=== PATIENT | female | born 1980 | race Caucasian/White ===

== ENCOUNTER 2020-08-16 13:58 | Inpatient (IN) | payer OTHER ==
[~2020-08-16] VITALS: Ht 144.8 cm; Wt 106.1 kg
--- NOTE | ~2020-08-16 | P ---
[facility] [place] [address] PROCEDURE REPORT Name: KAMALJIT PATEL Room #: 219-P [facility] IN M.R.#: [id number] Admission: 08/16/20 Attend Phys: Otto Coleman MD Discharge: 08/18/20 Date of : 78 Report #: [id number] THIS REPORT FOR: cc: [facility] - Clinic physician unknown [facility] - Clinic physician unknown Robert Godwin MD ~ CC: [facility] unknown Otto Coleman PROCEDURE: Pacemaker implantation. PREOPERATIVE DIAGNOSIS: Complete heart block. POSTOPERATIVE DIAGNOSIS: Complete heart block. HISTORY: The patient is a 40-year-old female, patient of Dr. Hilliard. She had recently had a syncopal episode. She wore a quality assurance monitor chassis, which showed a period of complete heart block, lasting 8 seconds. She is here for a dual chamber pacemaker implantation. ANESTHESIA: The patient underwent MAC anesthesia with no anesthesia related complications. DESCRIPTION OF PROCEDURE: The patient underwent informed consent. We discussed the details of the procedure including the risks, which include but are not limited to bleeding, infection, vascular damage, cardiac perforation, and pneumothorax. She understood these risks and is willing to proceed. The patient was brought to EP laboratory in fasting and sedated state, prepped and draped in a sterile fashion, received IV antibiotics and underwent a venogram showing patency of the left axillary vein. Next, lidocaine was injected below the level of left clavicle. Incision was made, pocket was created over the prepectoral fascia and access obtained twice ___ axillary vein using the extrathoracic approach. Sheaths were positioned using the modified Seldinger technique. Next, leads were positioned in the right ventricular apex and right atrial appendage with adequate pacing and sensing thresholds. The leads were sutured to the prepectoral fascia and connected to the pacemaker, pocket was irrigated with vancomycin. Pocket was closed in 2 layers and surgical glue was placed to outer skin layer. The patient awoke neurologically and hemodynamically intact. No complications and no significant bleeding. The implanted pacemaker was a Medtronic model # W3DR01, serial # [id number]. Atrial lead was a 5076, 52 cm, serial # [id number]. The RV lead was a model # 5076, 58 cm, serial # [id number]. Atrial lead demonstrated P waves of 3.1 millivolts, pacing impedance of 692 ohms, pacing threshold 0.5 volts at 0.5 milliseconds. RV lead demonstrated R waves of 7.7 millivolts, pacing impedance of 1088 ohms and pacing threshold 0.6 volts at 0.5 milliseconds. The device was programmed to DDD 60-130 mode. [facility] [address] [place] [address] PROCEDURE REPORT Name: KAMALJIT PATEL Room #: 219-P [facility] IN M.R.#: [id number] Admission: 08/16/20 Attend Phys: Otto Coleman MD Discharge: 08/18/20 Date of : 78 Report #: [id number] CONCLUSIONS: 1. Successful dual-chamber pacemaker implantation. 2. Satisfactory atrial and ventricular pacing and sensing thresholds. By: 1241 30 Robert Godwin MD /nt
[2020-08-16 14:02] VITALS: BP 154/88
--- NOTE | 2020-08-16 14:51 | EKG ---
Formerly [facility] [place] [address] ELECTROCARDIOGRAM REPORT Name: KAMALJIT PATEL Room #: PRE M.R.#: [id number] Admission: Attend Phys: Discharge: Date of : 78 Report #: [id number] THIS REPORT FOR: cc: Nas Majano MD [facility] ~ THIS REPORT FOR: //name// [facility]ly [facility] ED Test Date: 2020-08-16 Test Time: 14:07:21 Pat Name: KAMALJIT PATEL Department: Room: Gender: F [employer]: JAY : 1980 Requested By: Ye Moreno Order Number: [id number] MD: Nas Majano Measurements Intervals Sterling Rate: 95 P: 41 WI: 134 QRS: 5 QRSD: 85 T: 4 QT: 363 QTc: 457 Interpretive Statements Sinus rhythm Baseline wander in lead(s) I,II,aVR No previous ECG available for comparison Electronically Signed On 08-16-2020 14:51:25 [employer] by Nas Majano [email or web address] <ELECTRONICALLY SIGNED> By: Nas Majano MD, FACC 08/16/20 1451 1407 1407 Nas Majano MD, FACC /EPI
[2020-08-16 15:39] VITALS: BP 154/88
[2020-08-16 15:53] LABS: ABSOLUTE NEUTROPHILS 6.4 thou/uL (1.4-8.2); BASOPHILS 0.6 % (0.0-2.0); EOSINOPHILS 5.3 % (0.0-3.0); HEMATOCRIT 43.7 % (37.0-47.0); HEMOGLOBIN 14.8 gm/dL (12.0-15.0); LYMPHOCYTES 26.8 % (24.0-44.0); MCH 32.3 pg (26.0-34.0); MCHC 33.8 g/dL (28.0-37.0); MCV 95.6 fL (80.0-100.0); MONOCYTES 7.7 % (1.0-8.0); PLATELET COUNT 355 thou/uL (150-400); POLYS 59.6 % (36.0-66.0); RBC 4.57 mil/uL (4.20-5.00); RDW 13.9 % (10.5-14.5); WBC 10.7 thou/uL (4.0-11.0)
[2020-08-16 16:06] LABS: CALCIUM 8.8 mg/dL (8.5-10.1); CREATININE 0.8 mg/dL (0.6-1.0); POTASSIUM 3.7 mmol/L (3.5-5.1)
[2020-08-16 16:16] LABS: PROTIME 10.3 Seconds (9.3-11.4)
[2020-08-16 16:18] VITALS: BP 160/107
[2020-08-16 16:35] VITALS: BP 159/105
--- NOTE | 2020-08-16 16:58 | NUR ---
PT ARRIVED TO UNIT AT APPROX 1640 FROM ER WITH . PT ALERT AND ORIENTED.VSS. DENIES PAIN. PT TEARFUL ABOUT BEING IN THE HOSPITAL, EMOTIONAL SUPPORT GIVEN. ADMISSION COMPLETE. TELE STRIP PRINTED. PT UP AD LENNY TOLERATING WELL. PLAN IS FOR PACEMAKER PLACEMENT TOMORROW. PT DOES NOT WANT ANY PROCEDURE DONE UNTIL IS BACK TOMORROW. PT CURRENTLY SITTING UP IN BED DENIES NEEDS/CONCERNS AT THIS TIME. WILL CONT TO MONITOR PT AND FOLLOW POC. WILL PASS ON REPORT TO CAROL RN.
[2020-08-16] MEDS ORDERED: ZYRTEC10 M5 PO (17:47)
[2020-08-16] MEDS ORDERED: SINGULAIR 10 MG10 M1 PO (17:47)
[2020-08-16] MEDS ORDERED: REQUIP 1 MG TABL1 M1 PO (17:47)
[2020-08-16] MEDS ORDERED: DESYREL150 MG PO (17:48)
[2020-08-16] MEDS ORDERED: OMEPRAZOLE40 MG PO (17:49)
[2020-08-16] MEDS ORDERED: TOPAMAX100 MG PO (17:49)
[2020-08-16] MEDS ORDERED: ABILIFY10 MG PO (17:49)
[2020-08-16] MEDS ORDERED: GRALISE600 MG PO (17:50)
[2020-08-16] MEDS ORDERED: LEXAPRO20 MG PO (17:50)
[2020-08-16] MEDS ORDERED: HYDROCHLOROTHIA25 M2 PO (17:51)
[2020-08-16] MEDS ORDERED: BACLOFEN 10MG T10 MG PO (17:53)
[2020-08-16] MEDS ORDERED: FLONASE 0.05%50 MCG NASAL (17:53)
[2020-08-16] MEDS ORDERED: TRICOR145 MG PO (17:53)
[2020-08-16 20:33] VITALS: BP 149/107
[2020-08-16 21:08] LABS: TSH 3.717 uIU/mL (0.358-3.740)
[2020-08-17] VITALS (22 sets, daily range): BP systolic 115–148; BP diastolic 63–105
[2020-08-17 05:36] LABS: HEMATOCRIT 41.3 % (37.0-47.0); MCH 32.8 pg (26.0-34.0); MCHC 33.8 g/dL (28.0-37.0); MCV 96.9 fL (80.0-100.0); RBC 4.26 mil/uL (4.20-5.00); RDW 13.5 % (10.5-14.5); WBC 9.4 thou/uL (4.0-11.0)
--- NOTE | 2020-08-17 05:42 | NUR ---
ASSESSMENT DOCUMENTED.PT BEEN RESTING IN NO ACUTE DISTRESS.A/OX4.VSS.SR ON MONITOR.NO SYNCOPE EPISODES OR DIZZINESS NOTED.C/O NAUSEA THIS AM.MEDS ORDERED AWAITING VERIFICATION FROM PHARMACY.MEDS RESUMED PER [employer] SALESPERSON ORDERS.NO OTHER CONCERNS VOICED.POC IS TO HAVE PACEMAKER PLACED TODAY.WILL CONT TO MONITOR PER POC.
[2020-08-17 05:45] LABS: CALCIUM 8.5 mg/dL (8.5-10.1); CREATININE 0.8 mg/dL (0.6-1.0); MAGNESIUM 2.2 mg/dL (1.8-2.4); POTASSIUM 3.9 mmol/L (3.5-5.1)
--- NOTE | 2020-08-17 10:05 | 2DMMODE ---
[facility] [address] [place] [address] 2 D/M-MODE ECHOCARDIOGRAM Name: KAMALJIT PATEL Room #: 219-P ADM IN M.R.#: [id number] Admission: 08/16/20 Attend Phys: Otto Coleman MD Discharge: Date of : 78 Report #: [id number] THIS REPORT FOR: cc: [facility] - Clinic physician unknown [facility] - Clinic physician unknown Zion Alfaro MD ~ APPROVED REPORT Study performed: 08/17/2020 09:00:38 EXAM: Comprehensive 2D, Doppler, and color-flow Echocardiogram Patient Location: Echo lab Room #: 219 Status: routine BSA: 1.92 HR: 74 bpm BP: 146/97 mmHg Rhythm: NSR Other Information Study Quality: Good Indications Syncope, heart block, pre-pacemaker. Hx: HTN, HLP. 2D Dimensions RVDd: 29.06 mm IVSd: 9.68 (7-11mm) LVOT Diam: 20.47 (18-24mm) LVDd: 44.56 mm PWd: 9.93 (7-11mm) Ascending Ao: 26.91 (22-36mm) LVDs: 29.74 (25-40mm) Aortic Root: 26.31 mm Volumes Left Atrial Volume (Systole) Single Plane 4CH: 29.37 mL Single Plane 2CH: 34.68 mL LA ESV Index: 18.00 mL/m2 Aortic Valve AoV Peak Trace.: 1.33 m/s AO Peak Gr.: 7.04 mmHg LVOT Max P.49 mmHg LVOT Max V: 0.93 m/s NICHOL Vmax: 2.31 cm2 [facility] [address] [place] [address] 2 D/M-MODE ECHOCARDIOGRAM Name: KAMALJIT PATEL Room #: 219-P [facility] IN ..#: [id number] Admission: 08/16/20 Attend Phys: Otto Coleman, Discharge: Date of : 78 Report #: [id number] Mitral Valve E/A Ratio: 1.7 MV Decel. Time: 222.21 ms MV E Max Trace.: 0.93 m/s MV A Trace.: 0.54 m/s MV PHT: 64.44 ms IVRT: 101.50 ms Pulmonary Valve PV Peak Trace.: 1.23 m/s PV Peak Gr.: 6.07 mmHg Pulmonary Vein P Vein S: 0.51 m/s P Vein A: 0.22 m/s P Vein D: 0.37 m/s P Vein A Dur.: 138.4 msec P Vein S/D Ratio: 1.38 Tricuspid Valve RAP Estimate: 5.00 mmHg Left Ventricle The left ventricle is normal size. There is normal LV segmental wall motion. There is normal left ventricular wall thickness. The left ventricular systolic function is normal. LVEF is 55-60%. The left ventricular diastolic function is normal. Right Ventricle The right ventricle is normal size. The right ventricular systolic function is normal. Atria The left atrium size is normal. The right atrium size is normal. Aortic Valve The aortic valve is grossly normal. No aortic regurgitation is present. There is no aortic valvular stenosis. Mitral Valve The mitral valve is normal in structure. There is no mitral valve regurgitation noted. No evidence of mitral valve stenosis. Tricuspid Valve The tricuspid valve is normal in structure. Trace tricuspid regurgitation. Unable to assess PA pressure. [facility] [place] [address] 2 D/M-MODE ECHOCARDIOGRAM Name: KAMALJIT PATEL Room #: 219-P ADM IN M.R.#: [id number] Admission: 08/16/20 Attend Phys: Otto Coleman, Discharge: Date of : 78 Report #: [id number] Pulmonic Valve The pulmonary valve is normal in structure. There is no pulmonic valvular regurgitation. Great Vessels The aortic root is normal in size. The ascending aorta is normal in size. IVC is normal in size and collapses >50% with inspiration. Pericardium There is no pericardial effusion. <Conclusion> The left ventricle is normal size. LVEF is 55-60%. The right ventricle is normal size. The aortic valve is grossly normal. The mitral valve is normal in structure. The tricuspid valve is normal in structure. Trace tricuspid regurgitation. Unable to assess PA pressure. The pulmonary valve is normal in structure. There is no pericardial effusion. <ELECTRONICALLY SIGNED> By: Zion Alfaro MD 08/17/20 1004 1004 1004 Zion Alfaro MD /INF
--- NOTE | 2020-08-17 19:44 | NUR ---
ASSUMED CARE PT SHIFT CHANGE. ASSESSMENTS CHARTED.MEDS GIVEN PER DEC. PT ALERT AND ORIENTED.VSS. C/O PAIN IN INCISION SITE MANAGED WITH PO PAIN MEDS. PT HAD PACEMAKER PLACED THIS SHIFT. INCISION SITE CDI WITH NO HEMATOMA FORMATION. VSS. IMMOBILIZER IN PLACE. POST EP VITALS CHARTED. PT C/O NAUSEA WITH PAIN PILL ZOFRAN GIVEN WITH RELIEF OBTAINED. PLAN IS FOR PT TO DC HOME TOMORROW AFTER CXR AND PACEMAKER INTERROGATION. PT CURRENTLY SITTING UP IN BED, DENIES NEEDS AT THIS TIME. WILL CONT TO MONITOR AND FOLLOW POC. REPORT PASSED ONTO NOC RN.
[2020-08-18] VITALS: BP 109/71
[2020-08-18 04:03] VITALS: BP 104/59
--- NOTE | 2020-08-18 06:54 | NUR ---
PAIN WELL CONTROLLED.LEFT ARM IMMOBILIZER KEPT ALL NIGHT.MONITOR SHOWS SINUS RHYTHM/A PACED RHYTHM.POC CONTINUED.
[2020-08-18 08:15] VITALS: BP 134/83
[2020-08-18 08:22] VITALS: BP 134/83
[2020-08-18 09:15] VITALS: BP 134/83
--- NOTE | 2020-08-18 10:00 | NUR ---
PT CARE ASSUMED AT 0700. ASSESSMENT CHARTED. MEDICATION CHARTED. CXR COMPLETED THIS AM. RFA IV AND LFA IV. PT TO BE DISCHARGED. TELEMETRY D/C'D. IV'S D/C'D. DISCHARGE PAPERWORK COMPLETE.
== END 2020-08-18 10:30 | disposition home or self-care (01) | DRG 244 ==
LOC: ER 13:58 → EROBS 15:47 → 2N 15:47
PROVIDERS: Nurse Practitioner; Student in an Organized Health Care Education/Training Program; ADMIT Internal Medicine; ATTEND Internal Medicine
PROC: 02H63JZ Insertion of Pacemaker Lead into Right Atrium, Percutaneous Approach (ICD-10-PCS; principal; 2020-08-16)
PROC: 02HK3JZ Insertion of Pacemaker Lead into Right Ventricle, Percutaneous Approach (ICD-10-PCS; principal; 2020-08-16)
PROC: 0JH606Z Insertion of Pacemaker, Dual Chamber into Chest Subcutaneous Tissue and Fascia, Open Approach (ICD-10-PCS; principal; 2020-08-16)
DX: I44.2 Atrioventricular block, complete (principal); I10 Essential (primary) hypertension; F32.9 Major depressive disorder, single episode, unspecified; F41.9 Anxiety disorder, unspecified; I49.9 Cardiac arrhythmia, unspecified; I49.5 Sick sinus syndrome; E78.5 Hyperlipidemia, unspecified; F17.210 Nicotine dependence, cigarettes, uncomplicated; Z20.828 Contact with and (suspected) exposure to other viral communicable diseases; Z88.1 Allergy status to other antibiotic agents; Z88.8 Allergy status to other drugs, medicaments and biological substances; Z71.6 Tobacco abuse counseling
CPT/HCPCS: 10081; 62110; 62900; 70005